=== PATIENT | male | born 1970 | race Hispanic/Latino ===

== ENCOUNTER → 2016-07-19 | Day surgery (SDC) | payer OTHER ==
[~2016-07-19] VITALS: Ht 172.7 cm; Wt 81.6 kg
--- NOTE | 2016-07-19 13:34 | Operative Report ---
Operative/Inv Procedure Report Surgery Date: 07/19/16 Name of Procedure: left renal ESWL Pre-Operative Diagnosis: Bilateral renal stones, with bilateral renal colic.. Post-Operative Diagnosis: Same Estimated Blood Loss: none Surgeon/Semiconductor Assembler: HORACIO BERG MD Anesthesia: moderate sedation Drains: None Complications: None Operative/Procedure Note Note: The patient was taken to the operating room and placed on the ESWL table in supine position. With the patient awake and participating, timeout was performed to confirm correct identity, procedure, laterality, anesthesia, and other pertinent imelda-operative information. After adequate anesthesia, the patient was positioned so that the patient's left flank was positioned over the table cut-out, overlying the dome of the treatment head. Once the patient was adequately sedated, fluoroscopy, as well as Renal ultrasound was used to locate the LEFT renal stone. Renal US confirmed the presence of the stone which measured it to be approximately 6 mm upper pole stone. The stone was visible with fluoroscopy. Renal US revealed, no hydronephrosis, and no solid tumor, and presence of the stone. The position of the stone was optimized by using fluoroscopy in AP and oblique views;placing the stone within the ESWL c-arm crosshairs. Once the stone's position was optimized, the LEFT renal E.S.W.L. was initiated at low energy level. After noting the patient's tolerance to the shockwaves, the intensitiy was ramped up to maximum level. At the end of the procedure, the left renal stone had dissintegrated. Of note, a total of 2500 shockwaves were delivered to the stone. The patient tolerated the ESWL procedures well, was awakened, then taken to recovery in satisfactory condition via stretcher. The patient was dischared home with pain medications, diet orders, and intructions to catch fragments by straining the urine. The patient to to have a right renal ESWL in a few weeks. Discharge Disposition: Same Day Admissions CC: HORACIO BERG MD
== END ==
LOC: STS 02:01
DX: N20.0 Calculus of kidney (principal); N23 Unspecified renal colic
CPT/HCPCS: J1885; J2250